=== PATIENT | female | born 1950 | race Caucasian/White ===

== ENCOUNTER 2019-05-21 09:08 | Inpatient (IN) | payer MEDICARE, OTHER ==
[~2019-05-21] VITALS: Ht 172.7 cm; Wt 63.0 kg
--- NOTE | 2019-05-21 09:22 | NUR ---
SPOKE WITH PATIENT'S DAUGHTER WHO IS A CARDIOVASCULAR SURGEON IN [facility]
--- NOTE | 2019-05-21 09:27 | NUR ---
PT TO CT
[2019-05-21 09:31] LABS: BASOPHILS # (AUTO) 0.1 X10'3 (0-0.2); BASOPHILS % (AUTO) 1.1 % (0-1); EOSINOPHILS # (AUTO) 0.1 X10'3 (0-0.9); EOSINOPHILS % (AUTO) 1.8 % (0-6); HEMATOCRIT 39.4 % (35.0-45.0); HEMOGLOBIN 13.2 g/dl (12.0-16.0); LYMPHOCYTES # (AUTO) 2.3 X10'3 (1.1-4.8); LYMPHOCYTES % (AUTO) 36.3 % (21-51); MEAN CORPUSCULAR HEMOGLOBIN 30.9 PG (27.0-31.0); MEAN CORPUSCULAR HGB CONC 33.4 g/dL (33.0-36.5); MEAN CORPUSCULAR VOLUME 92.3 FL (78-98); MEAN PLATELET VOLUME 9.7 FL (7.4-10.4); MONOCYTES # (AUTO) 0.6 X10'3 (0-0.9); MONOCYTES % (AUTO) 9.3 % (2-12); NEUTROPHILS # (AUTO) 3.3 X10'3 (1.8-7.7); NEUTROPHILS % (AUTO) 51.5 % (42-75); PLATELET COUNT 268 X10'3 (140-440); RED BLOOD COUNT 4.27 X10'6 (4.20-5.60); RED CELL DISTRIBUTION WIDTH 13.4 % (11.5-14.5); WHITE BLOOD COUNT 6.4 X10'3 (4.5-11.0)
--- NOTE | 2019-05-21 09:35 | NUR ---
LINDA RN STROKE RN AT BEDSIDE SPEAKING WITH
[2019-05-21 09:39] LABS: ALANINE AMINOTRANSFERASE 23 U/L (12-78); ALBUMIN 3.8 G/DL (3.4-5.0); ALKALINE PHOSPHATASE 49 IU/L (46-116); ANION GAP 8 (8-16); ASPARTATE AMINO TRANSFERASE 16 U/L (10-37); BLOOD UREA NITROGEN 13 MG/DL (7-18); BUN/CREATININE RATIO 14.1 (6.6-38.0); CALCIUM 9.3 MG/DL (8.5-10.1); CHLORIDE 107 MMOL/L (99-107); CREATININE 0.92 MG/DL (0.40-0.90); POTASSIUM 4.2 MMOL/L (3.5-5.1); SODIUM 143 MMOL/L (135-145); TOTAL CARBON DIOXIDE 27.9 MMOL/L (24-32); eGFR 61 ML/MIN
--- NOTE | 2019-05-21 09:41 | NUR ---
BACK FROM CT SCAN
[2019-05-21 09:43] LABS: ALBUMIN/GLOBULIN RATIO 1.1 (1.1-1.5); BILIRUBIN,TOTAL 0.3 MG/DL (0.1-1.0); GLUCOSE 121 MG/DL (70-104); TOTAL PROTEIN 7.4 G/DL (6.4-8.2)
--- NOTE | 2019-05-21 09:45 | NUR ---
Did stroke alert evaluation on patient and noted she has an eye patch over the left eye since she just had cataract surgery on the left eye and came to ER from the eye surgery center. She gave verbal consent to do the Teleneuro evaluation.
[2019-05-21] MEDS ORDERED: aspirin 325mg tablet PO ONE (09:50)
[2019-05-21 09:51] LABS: PLATELET ESTIMATE NORMAL
[2019-05-21 09:52] LABS: GIANT PLATELET FEW; LARGE PLATELETS FEW
--- NOTE | 2019-05-21 10:01 | NUR ---
She verbalizd that she had the numbness and tingling come back to the left arm and now into the left leg; she also verbalized that the arm was jumping and she could not control it. She was able to lift the left arm and the shop welder was strong. This lasted about 5 minutes then it resolved on its own. She was very anxious at this time and was shaking; emotional support was given and her is at bedside.
--- NOTE | 2019-05-21 10:20 | NUR ---
Teleneuro evaluation was done at this time and he will talk to Dr. Rodríguez about his recommendations.
[2019-05-21 10:30] LABS: PARTIAL THROMBOPLASTIN TIME 24 SECONDS (22-32)
[2019-05-21 11:04] LABS: CLARITY,URINE CLEAR (Clear); COLOR,URINE YELLOW (Yellow); GLUCOSE, URINE NEGATIVE (Neg); KETONES,URINE NEGATIVE (Neg); LEUKOCYTE ESTERASE ,URINE NEGATIVE (Neg); NITRITES, URINE NEGATIVE (Neg); OCCULT BLOOD,URINE NEGATIVE (Neg); PH,URINE 7.5 (4.8-8.0); PROTEIN,URINE NEGATIVE (Neg); UA COLLECTION TYPE CLN CATCH MIDSTREAM; UROBILINOGEN,URINE 0.2 E.U/dL (0.2-1.0)
[2019-05-21] MEDS ORDERED: magnesium Cl slow-release 64mg tablet PO PRN (11:10)
[2019-05-21] MEDS ORDERED: magnesium 2GM in 50ml NS 50 ML IV PRN (11:10)
[2019-05-21] MEDS ORDERED: potassium Cl 20 mEq SR tablet PO PRN ×2 (11:10)
[2019-05-21] MEDS ORDERED: magnesium hydroxide 30ml (MOM) UD suspension PO PRN (11:10)
[2019-05-21] MEDS ORDERED: acetaminophen 325mg tablet PO PRN ×2 (11:10)
[2019-05-21] MEDS ORDERED: HYDROcodone/acetaminophen 5mg/325mg tablet PO PRN (11:10)
[2019-05-21] MEDS ORDERED: magnesium 4gm in 100ml NS 100 ML IV PRN (11:10)
[2019-05-21] MEDS ORDERED: mag hydrox/Alum hydrox/simeth 30ml oral suspension PO PRN (11:10)
[2019-05-21] MEDS ORDERED: ondansetron/PF 4mg/2ml inj IV PRN (11:10)
[2019-05-21] MEDS ORDERED: potassium CL 10mEq/100ml bag 100 ML IV PRN ×2 (11:10)
[2019-05-21] MEDS ORDERED: HYDROcodone/acetaminophen 10/325mg tab PO PRN (11:10)
[2019-05-21] MEDS ORDERED: metoclopramide 5 mg/ml inj IV PRN (11:10)
--- NOTE | 2019-05-21 11:13 | NUR ---
spoke to dr henson
[2019-05-21] MEDS ORDERED: normal saline 1000ml 1,000 ML IV ONE (11:15)
[2019-05-21 11:47] LABS: HEMOGLOBIN A1C 5.8 % (4.5-6.2)
--- NOTE | 2019-05-21 12:00 | NUR ---
PATIENT AMBULATED WNL ABOUT 150 FEET TO BATHROOM, VERY STEADY ON FEET DENIES DIZZYNESS, DENIES NUMBNESS/TINGLING
[2019-05-21] MEDS: normal saline 1000ml 1,000 ML IV SCH (12:10)
--- NOTE | 2019-05-21 12:24 | NUR ---
VERBAL REPORT TO RENA GIMENEZ. DISCUSSED ALL LABS, ORDERS, VITAL SIGNS, NEURO CHANGES AND RESOLUTION. PATIENT GOING TO ROOM 4022A.
--- NOTE | 2019-05-21 12:29 | NUR ---
PERNELL MENDOSA COMPLETED BELONGINGS LIST
[2019-05-21] MEDS ORDERED: UBID200C18 (12:30)
[2019-05-21] MEDS ORDERED: ASTA4CAP PO (12:30)
[2019-05-21] MEDS ORDERED: [UNRECOGNIZED DRUG - OTHER] (12:30)
[2019-05-21] MEDS ORDERED: TAUR1000 (12:30)
[2019-05-21] MEDS ORDERED: NIAC500C12 PO (12:30)
[2019-05-21] MEDS ORDERED: METHYL CPG PO (12:30)
[2019-05-21] MEDS ORDERED: MAGN500C16 PO (12:30)
[2019-05-21] MEDS ORDERED: PHYT100T PO (12:30)
[2019-05-21] MEDS ORDERED: ASCO500C15 PO (12:30)
[2019-05-21] MEDS ORDERED: LACT1CAP65 PO (12:30)
[2019-05-21] MEDS ORDERED: CHOL400T14 PO (12:30)
[2019-05-21] MEDS ORDERED: MULT1TAB74 PO (12:30)
[2019-05-21] MEDS ORDERED: RESV250C2 PO (12:30)
[2019-05-21 13:00] VITALS: BP 169/82
--- NOTE | 2019-05-21 14:45 | NUR ---
pt on unit. physical assessment complete. DART completed. 2 RN skin check completed. MRSA swab complete.
--- NOTE | 2019-05-21 17:31 | NUR ---
sent to Dr Pak PAGER ID: [phone] MESSAGE: RE: Alejandra Capone [id number]. Pt would like to speak with you. - [phone]
[2019-05-21 18:00] VITALS: BP 153/76
[2019-05-21] MEDS ORDERED: LORazepam 2 mg/ml vial IV ONE (18:25)
--- NOTE | 2019-05-21 18:33 | NUR ---
Problems reprioritized. Patient report given, questions answered & plan of care reviewed with PERNELL Marie. Addendum: 05/21/19 at 1835 by Paula Carson RN Problems reprioritized. Patient report given, questions answered & plan of care reviewed with PERNELL FELIX. NOT IRINEO.
--- NOTE | 2019-05-21 18:37 | NUR ---
Problems reprioritized. Patient report given, questions answered & plan of care reviewed with PERNELL JOYCE.
[2019-05-21] MEDS ORDERED: LORazepam 2 mg/ml vial IV PRN (18:45)
[2019-05-21] MEDS: K and/or MAG REPLACEMENT MC SCH (20:00)
[2019-05-21] MEDS ORDERED: temazepam 15mg capsule PO PRN (21:00)
[2019-05-21 22:00] VITALS: BP 121/70
[2019-05-22 02:07] VITALS: BP 147/76
--- NOTE | 2019-05-22 06:21 | NUR ---
Problems reprioritized. Patient report given, questions answered & plan of care reviewed with PERNELL BERNAL.
[2019-05-22 06:39] VITALS: BP 138/72
[2019-05-22 06:45] LABS: BASOPHILS % (AUTO) 0.8 % (0-1); EOSINOPHILS # (AUTO) 0.1 X10'3 (0-0.9); EOSINOPHILS % (AUTO) 2.7 % (0-6); HEMOGLOBIN 12.2 g/dl (12.0-16.0); LYMPHOCYTES # (AUTO) 1.7 X10'3 (1.1-4.8); LYMPHOCYTES % (AUTO) 32.9 % (21-51); MEAN CORPUSCULAR HEMOGLOBIN 31.5 PG (27.0-31.0); MEAN CORPUSCULAR VOLUME 92.6 FL (78-98); MEAN PLATELET VOLUME 9.8 FL (7.4-10.4); MONOCYTES # (AUTO) 0.4 X10'3 (0-0.9); MONOCYTES % (AUTO) 6.8 % (2-12); NEUTROPHILS % (AUTO) 56.8 % (42-75); PLATELET COUNT 259 X10'3 (140-440); RED BLOOD COUNT 3.89 X10'6 (4.20-5.60); RED CELL DISTRIBUTION WIDTH 13.5 % (11.5-14.5); WHITE BLOOD COUNT 5.2 X10'3 (4.5-11.0)
[2019-05-22 07:03] LABS: ALANINE AMINOTRANSFERASE 22 U/L (12-78); ALBUMIN 3.1 G/DL (3.4-5.0); ALKALINE PHOSPHATASE 42 IU/L (46-116); ANION GAP 6 (8-16); ASPARTATE AMINO TRANSFERASE 15 U/L (10-37); BILIRUBIN,TOTAL 0.3 MG/DL (0.1-1.0); BLOOD UREA NITROGEN 11 MG/DL (7-18); BUN/CREATININE RATIO 14.5 (6.6-38.0); CALCIUM 8.5 MG/DL (8.5-10.1); CHLORIDE 111 MMOL/L (99-107); CHOL/HDL RATIO 3.3 (0.00-4.99); CHOLESTEROL 170 MG/DL (0-200); CREATININE 0.76 MG/DL (0.40-0.90); GLUCOSE 97 MG/DL (70-104); HDL CHOLESTEROL 52 MG/DL (35-60); LDL CHOLESTEROL 105 MG/DL (50-100); MAGNESIUM 1.8 MG/DL (1.5-2.4); POTASSIUM 3.9 MMOL/L (3.5-5.1); SODIUM 145 MMOL/L (135-145); TOTAL CARBON DIOXIDE 27.7 MMOL/L (24-32); TOTAL PROTEIN 6.3 G/DL (6.4-8.2); TRIGLYCERIDES 73 MG/DL (20-135); eGFR 75 ML/MIN
[2019-05-22] MEDS: normal saline 1000ml 1,000 ML IV SCH (07:04)
[2019-05-22] MEDS: K and/or MAG REPLACEMENT MC SCH (07:08)
[2019-05-22] MEDS ORDERED: [UNRECOGNIZED DRUG - MIXTURE] PO SCH (07:30)
[2019-05-22] MEDS ORDERED: aspirin 325mg tablet PO SCH ×2 (08:30)
[2019-05-22] MEDS ORDERED: ASPI-611 PO (08:34)
--- NOTE | 2019-05-24 08:45 | NUR ---
Case Management DC follow up: spoke to pt via telephone. denies s/s r/t stroke. TIA. Takes BP at home systolic 112-114, WNL for pt. pt cedes that she has "white coat syndrome" for any Dr appt. she just had cataract surgery & started feeling symptomatic w/L side weakness so she came to ER. possible, TIA, refused statin, reluctant for the asa 81mg, but accepted Rx. Pt stated her BP was never that high and she is having what she feels is "PTSD' & nightmares after hospital visit. She wishes she did not feel that way. pt daughter is a cardiac surgeon and pt inquired about if all records/test results were ready as she was told they would be in 48hrs so she can send them to daughter. pt asked to call direct to get records which she agreed to. Reminded pt to follow up w/PCP. pt denies s/s stroke/TIA, SOB, cp, general emergent pain, MONET, NV, dizziness at this time. Pt educated at [facility] on medications, refused statins, reluctantly agreed to asa 81mg. all needs met, questions answered at [facility], pt just needed reassurance. no further questions at this time.
== END 2019-05-22 09:40 | disposition home or self-care (01) | DRG 69 ==
LOC: ER 09:09 → ED HOLD 11:09 → ORTHO 4S 12:30
PROVIDERS: ADMIT Family Medicine; ATTEND Family Medicine
DX: G45.9 Transient cerebral ischemic attack, unspecified (principal); E03.9 Hypothyroidism, unspecified; E78.5 Hyperlipidemia, unspecified; I10 Essential (primary) hypertension; Z98.42 Cataract extraction status, left eye; Z87.891 Personal history of nicotine dependence; Z87.19 Personal history of other diseases of the digestive system; Z86.73 Personal history of transient ischemic attack (TIA), and cerebral infarction without residual deficits; Z80.0 Family history of malignant neoplasm of digestive organs
CPT/HCPCS: 36415; 70450; 70544; 70547; 70551; 71045; 80053; 80061; 81003; 83036; 83735; 84443; 85025; 85610; 85651; 85730; 86885; 86900; 86901; 87081; 92508; 92616; 93005; 93306; 93880; 97161; 97530; 99291; G0378; J2060; J7030